=== PATIENT | female | born 1985 | race Hispanic/Latino ===

== ENCOUNTER 2022-05-24 12:27 | Outpatient (CLI) | payer OTHER | END 2022-05-24 12:28 | disposition home or self-care (01) | LOC: CSHLAB 12:27 | PROVIDERS: ATTEND Obstetrics & Gynecology | DX: Z01.812 Encounter for preprocedural laboratory examination (principal); Z20.822 Contact with and (suspected) exposure to COVID-19 | CPT/HCPCS: 84703; 85025; 86850; 86900; 86901; 87811 ==

== ENCOUNTER 2022-05-29 07:29 | Day surgery (SDC) | payer OTHER ==
[2022-05-24 14:34] LABS: #Basophils 0.1 10x3/uL (0.0-0.2); #Eosinphils 0.2 10x3/uL (0.0-0.5); #Monocytes 0.3 10x3/uL (0.0-1.1); #Neutrophils 3.1 10x3/uL (1.5-8.4); %Basophils 0.9 % (0.0-2.0); %Eosinophils 3.4 % (0.0-6.0); %Lymphocytes 35.3 % (18.0-47.0); %Monocytes 4.8 % (0.0-10.0); %Neutrophils 55.2 % (40.0-75.0); Hemoglobin 11.2 g/dL (12.0-15.5); Mean Corpuscular HGB CONC 32.9 g/dL (32.0-36.0); Mean Corpuscular Hemoglobin 28.4 pg (27.0-33.0); Mean Corpuscular Volume 86.3 fl (81.6-98.3); Mean Platelet Volume 9.8 fl (7.4-10.4); Platelet Count 355 10x3/uL (150-450); RBC Distribution Width 13.9 % (11.5-14.5); Red Blood Cell (RBC) Count 3.94 10x6/uL (3.90-5.03); White Blood Cell (WBC) Count 5.6 10x3/uL (3.5-10.5)
[2022-05-24 14:44] LABS: BHCG - Serum Negative (NEGATIVE); Pregs Control Background? CLEAR/WHITE (CLR/WHITE); Pregs Control Bar Appear? YES (CONTROL BAR)
[2022-05-27 13:15] VITALS: BMI 29.8
[2022-05-29] MEDS ORDERED: Gabapentin 300 MG CAP ONE (07:51)
[2022-05-29] MEDS ORDERED: Famotidine/PF 20 mg/2ml Vial ONE (07:52)
[2022-05-29] MEDS ORDERED: CeleCOXIB 100 MG CAP ONE (07:53)
[2022-05-29] MEDS ORDERED: Midazolam HCl 2 mg/2 ml Vial ONE ×2 (09:31→09:47)
[2022-05-29] MEDS ORDERED: PROPOFOL 20 ML ONE (09:46)
[2022-05-29] MEDS ORDERED: Fentanyl 250 MCG/5 ML VIAL ONE (09:46)
[2022-05-29] MEDS ORDERED: Ondansetron PF 4 MG/2 ML Vial ONE (09:47)
[2022-05-29] MEDS ORDERED: Glycopyrrolate 0.2 MG/ML 5 ML SYRINGE ONE (09:47)
[2022-05-29] MEDS ORDERED: Lidocaine 1% PF 5 ML VIAL ONE (09:47)
[2022-05-29] MEDS ORDERED: Ketorolac Tromethamine 30 MG/ML VIAL ONE (09:47)
[2022-05-29] MEDS ORDERED: Dexamethasone 4 mg/ml Vial ONE (09:47)
[2022-05-29] MEDS ORDERED: Rocuronium Bromide 10 MG/ML (10ML VIAL) ONE (09:47)
[2022-05-29] MEDS ORDERED: Bupivacaine PF 0.5% 30 ML VIAL ONE (09:47)
[2022-05-29] MEDS ORDERED: CEFAZOLIN 2 GM VIAL ONE (09:55)
[2022-05-29] MEDS ORDERED: EPINEPHrine 1 MG/ML AMP ONE (10:29)
[2022-05-29] MEDS ORDERED: Fentanyl 100 MCG/2 ML VIAL ONE (11:14)
== END 2022-05-29 13:15 | disposition home or self-care (01) ==
LOC: CSHSDC 07:29
PROVIDERS: ATTEND Obstetrics & Gynecology
PROC: 0UT94ZZ Resection of Uterus, Percutaneous Endoscopic Approach (ICD-10-PCS; principal; 2022-05-29)
PROC: 0UT74ZZ Resection of Bilateral Fallopian Tubes, Percutaneous Endoscopic Approach (ICD-10-PCS; principal; 2022-05-29)
DX: N80.0 Endometriosis of uterus (principal); N94.6 Dysmenorrhea, unspecified; N92.0 Excessive and frequent menstruation with regular cycle; Z79.899 Other long term (current) drug therapy; Z20.822 Contact with and (suspected) exposure to COVID-19; Z98.51 Tubal ligation status; Z98.890 Other specified postprocedural states
CPT/HCPCS: 36415; 84703; 85025; 86850; 86900; 86901; 87811; 88307; C1776; J0171; J0690; J1100; J1885; J2250; J2405; J2704; J3010; S0020; S0028